=== PATIENT | female | born 1945 | race Caucasian/White ===

== ENCOUNTER 2023-05-05 08:33 | Emergency (ER) | payer MEDICARE, SELFPAY ==
[2023-05-05 08:50] VITALS: BP 160/73; PULSE 80; RESP 14; TEMP 36.5; O2SAT 99; BMI 24.6
--- NOTE | 2023-05-05 08:53 | DI.RAD.S_ITS ---
PROCEDURE: XR TOE LT MIN 2V INDICATIONS: hit left 2nd toe TECHNIQUE: 3 views of the left 2nd toe(s) acquired. COMPARISON: None. FINDINGS: Bones: No fractures or dislocations. No suspicious bony lesions. Soft tissues: No suspicious soft tissue densities. IMPRESSION: No acute fracture. No osseous lesion. If symptoms and/or clinical suspicion for pathology persist, further assessment with repeat, or advanced imaging (e.g., CT, MRI, or bone scan) may be helpful for further assessment. Dictated by: Len Lopez M.D. on 05/05/2023 at 9:36 Approved by: Len Lopez M.D. on 05/05/2023 at 9:37
[2023-05-05 09:44] VITALS: PULSE 70
--- NOTE | 2023-05-05 10:10 | ED_ITS ---
HPI - Extremity Injury (Lower) General Chief Complaint: Extremity Injury, Lower Stated Complaint: LT Foot injury, per pt toe maybe broken Time Seen by Provider: 05/05/23 09:53 Source: patient Mode of arrival: Ambulatory History of Present Illness HPI Narrative: 77-year-old female presents for evaluation left toe injury. Patient states she injured her toe in the middle of the night and is concerned that it may be broken. She was wearing an old postop shoe that she has from a previous surgery, which she feels is helping to protect the area. Related Data Allergies Allergy/AdvReac Type Severity Reaction Status Date / Time No Known Drug Allergies Allergy Verified 05/05/23 08:53 Review of Systems Review of Systems Narrative: Negative except as noted above Patient History Social History Smoking Status: Former smoker Smoking Status: Former smoker alcohol intake frequency: 0-2 drinks per day Substance Use Type: does not use Exam Initial Vital Signs Initial Vital Signs: Vital Signs Temperature 97.7 F 05/05/23 08:50 Pulse Rate 80 05/05/23 08:50 Respiratory Rate 14 05/05/23 08:50 Blood Pressure 160/73 H 05/05/23 08:50 Pulse Oximetry 99 05/05/23 08:50 Oxygen Delivery Method Room Air 05/05/23 08:50 Const: Awake, alert, no acute distress, nontoxic appearing MSK: Minimal swelling left middle toe Skin: Warm, Dry, intact, no rashes Neuro: AO x3, CN II-XII grossly intact, moves all extremities Course Orders Ordered: ED Orders 05/05/23 08:53 XR toe LT min 2V Stat Vital Signs Vital signs: Vital Signs - 8 hr 05/05/23 08:50 05/05/23 09:44 Temperature 97.7 F Pulse Rate 80 Pulse Rate [Left Dorsalis Pedis] 70 Respiratory Rate 14 Blood Pressure 160/73 H Pulse Oximetry 99 Oxygen Delivery Method Room Air MDM - Extremity Injury (Lower) Differential Diagnosis Differential diagnosis: Likely ankle sprain and strain, acute internal de rangement of knee and fracture of femur MDM Narrative Medical decision making narrative: Accidental toe injury, patient was ambulatory without difficulty. X-ray showed no acute fracture. Patient counseled to take Tylenol and apply ice as needed for comfort. Routine PCP follow up advised. Discharge Plan Departure Patient Disposition: Home Clinical Impression: Sprain of toe Qualifiers: Encounter type: initial encounter Qualified Code(s): S93.509A - Unspecified sprain of unspecified toe(s), initial encounter Instructions: DI for Toe Sprain Activity Restrictions/Additional Instructions: Take Tylenol as needed for pain. Apply ice to areas of swelling. Stand Alone Forms: Patient Portal/API
[2023-05-05 10:41] VITALS: BP 142/63; PULSE 81; RESP 20; TEMP 36.7; O2SAT 96
== END 2023-05-05 10:44 | disposition home or self-care (01) ==
PROVIDERS: Emergency Provider Emergency Medicine
DX: S93.505A Unspecified sprain of left lesser toe(s), initial encounter (principal); X58.XXXA Exposure to other specified factors, initial encounter
CPT/HCPCS: 73660; 99282; 99283

== ENCOUNTER → 2024-02-03 10:18 | Outpatient (CLI) | payer MEDICARE, SELFPAY ==
--- NOTE | 2024-02-03 10:22 | DI.CT.S_ITS ---
PROCEDURE: CT LUNG LOW DOSE SCREENING INDICATIONS: SCREENING / TOBACCO DEPENDENCE, IN REMISSION TECHNIQUE: Noncontrast 2.0-2.5 mm thick sections acquired from the pulmonary apices to the posterior costophrenic angles. 7 mm thick axial MIP, and 5 mm coronal and sagittal reformats were then acquired. For radiation dose reduction, the following was used: automated exposure control, adjustment of mA and/or kV according to patient size. COMPARISON: None. FINDINGS: Image quality: Diagnostic. Lower Neck: No enlarged lymph nodes. Thyroid: No thyroid nodules which require sonographic follow up, per consensus guidelines. Axillae: No enlarged lymph nodes. Chest Wall: Unremarkable. Bones: Unremarkable. Lungs and Pleura: No pneumothorax or pleural effusions. Lung volumes are large, centrilobular emphysema appears present. No pulmonary mass lesion is found. Heart: Heart size is normal. No pericardial effusion. Thoracic Vessels: The aorta and pulmonary arteries demonstrate normal size. Mediastinum and [place]: No enlarged lymph nodes. Esophagus: No wall thickening. No hiatal hernia. Upper Abdomen: Visualized upper abdomen solid organs and bowel loops appear normal except for an asymmetric appearance of the upper collecting system of the left kidney when compared to that on the right. There is a fullness with little fat along the presumed collecting system margins when compared to a normal appearance at the upper 3rd collecting system on the right. This may reflect presence of a urothelial mass in that area, a questionable finding, but the area measures up to approximately 23 Hounsfield units (above water in radiodensity). IMPRESSION: No suspicious pulmonary nodules. LUNG-RADS 1; continued annual screening, if eligible. Clinically Significant Non-pulmonary Findings: The study is performed without contrast and note is made of an unusual fullness in the expected area of the upper 3rd collecting system of the left kidney when compared to a normal appearance on the right. Given longstanding smoking history risk of urothelial carcinoma is considered elevated and follow-up urine analysis and consideration of CT IVP or at least targeted single organ ultrasound of the left kidney is recommended. Dictated by: Delroy Mosley M.D. on 02/03/2024 at 11:47 Approved by: Delroy Mosley M.D. on 02/03/2024 at 11:54
== END ==
PROVIDERS: PCP Family Medicine; Referring Provider Family Medicine; Visit Provider Family Medicine
DX: F17.211 Nicotine dependence, cigarettes, in remission (principal); Z12.2 Encounter for screening for malignant neoplasm of respiratory organs
CPT/HCPCS: 71271

== ENCOUNTER → 2024-02-08 10:51 | Outpatient (CLI) | payer MEDICARE, SELFPAY ==
[2024-02-08 11:14] LABS: Estimated Glomerular Filt Rate > 60 mL/min (>60)
--- NOTE | 2024-02-08 11:17 | DI.CT.S_ITS ---
PROCEDURE: CT IVP A/P W/WO INDICATIONS: LEFT KIDNEY MASS TECHNIQUE: Optional 5 mm thick noncontrast images acquired from the diaphragm to the symphysis pubis. After the administration of intravenous contrast, 5 mm thick images acquired from the diaphragm to the symphysis pubis after a 10-minute delay. 2 mm thick coronal and sagittal reformats were then performed of the kidneys and ureters. For radiation dose reduction, the following was used: automated exposure control, adjustment of mA and/or kV according to patient size. COMPARISON: [facility], CT, CT LUNG LOW DOSE SCREENING, 02/03/2024, 10:26. FINDINGS: Image quality: Diagnostic. Kidneys and Ureters: Both kidneys are normal in size, without hydronephrosis or nephrolithiasis. No perinephric fat stranding. There is normal bilateral renal enhancement. Bilateral peripelvic cysts. Otherwise, the renal calyces appear normal in morphology when filled with contrast. Opacified portions of both ureters demonstrate normal caliber Bladder: Bladder wall thickness is normal. No calcified bladder stones. OTHER: Lower chest: Unremarkable. Liver: No solid mass. Gallbladder: No radiopaque gallstones or wall thickening. Biliary ducts: No biliary dilation. Pancreas: No ductal dilation. Spleen: Size is within normal limits. Adrenal Glands: No adrenal nodules. Stomach and Bowel: Normal colonic caliber, without significant wall thickening. Peritoneum: No abnormal intraperitoneal fluid. No free air. Ventral Wall: No hernia. Abdominal Nodes: No retroperitoneal or mesenteric adenopathy by size criteria. Vessels: Aorta and inferior vena cava are normal in size. Atherosclerotic vascular calcifications. PELVIS: Pelvic Organs: Unremarkable. Pelvic Nodes: No enlarged lymph nodes. Miscellaneous: No inguinal hernias are seen. Bones: No aggressive osseous abnormality. Decreased osseous mineralization. Degenerative changes of the spine. IMPRESSION: No nephrolithiasis or filling defects within the opacified renal collecting system or ureters. The abnormality seen on prior CT appears to correlate with peripelvic cysts. No definite renal mass is identified. Dictated by: Brad Car M.D. on 02/08/2024 at 13:52 Approved by: Brad Car M.D. on 02/08/2024 at 14:07
== END ==
PROVIDERS: Radiology Diagnostic Radiology; PCP Family Medicine; Referring Provider Nurse Practitioner Family; Visit Provider Nurse Practitioner Family
DX: N28.89 Other specified disorders of kidney and ureter (principal); N28.1 Cyst of kidney, acquired
CPT/HCPCS: 36415; 74178; 82565; Q9967

== ENCOUNTER → 2024-03-03 10:01 | Outpatient (CLI) | payer MEDICARE, SELFPAY ==
--- NOTE | 2024-03-03 10:02 | DI.RAD.S_ITS ---
PROCEDURE: XR DEXA AXIAL SKELETON INDICATIONS: PREMATURE MENOPAUSE COMPARISON: None. FINDINGS: Lumbar Spine: Bone mineral density 0.909 g/cm2, T score -1.3. Left Femoral Neck: Bone mineral density 0.557 g/cm2, T score -2.6. Left Hip: Bone mineral density 0.649 g/cm2, T score -2.4. Fracture Risk Calculation (when applicable): FRAX score not reported due to T-score less than -2.5. (T score greater or equal to -1.0 to: NORMAL) (T score from -1.1 to -2.4: OSTEOPENIA) (T score less than or equal to -2.5: OSTEOPOROSIS) IMPRESSION: By WHO criteria, patient has osteoporosis. Follow-up guidelines as follows: Osteoporosis: Consider a repeat DEXA and Vertebral Fracture Assessment (VFA) exam in 2 years or sooner if medically necessary, to reassess this patient's status. Osteopenia: Consider a repeat DEXA in 2-3 years to reassess this patient's status, or if there is a new clinical indication. Normal: Consider a repeat DEXA in 5 years or sooner, or if there is a new clinical indication. All treatment decisions require clinical judgment and consideration of individual patient factors, including patient preferences, comorbidities, previous drug use, risk factors not captured in the FRAX model (e.g., frailty, falls, vitamin D deficiency, increased bone turnover, interval significant decline in bone density ) and possible under- or over-estimation of fracture risk by FRAX. In addition, the NOF Guide recommends that FDA-approved medical therapies be considered in postmenopausal women and men age >= 50 years with a: * Hip or vertebral (clinical or morphometric) fracture * T-score of <=-2.5 at the spine or hip * Ten-year fracture probability by FRAX of >= 3% for hip fracture or >=20% for major osteoporotic fracture. Approved by: Ovidio Ge M.D. on 03/03/2024 at 23:43
== END ==
PROVIDERS: PCP Family Medicine; Referring Provider Nurse Practitioner Family; Visit Provider Nurse Practitioner Family
DX: E28.319 Asymptomatic premature menopause (principal); M81.0 Age-related osteoporosis without current pathological fracture
CPT/HCPCS: 77080

== ENCOUNTER → 2024-03-04 08:29 | Outpatient (CLI) | payer MEDICARE, SELFPAY ==
--- NOTE | 2024-03-04 | DI.MG.S_ITS ---
BILATERAL DIGITAL SCREENING MAMMOGRAM 3D/2D WITH CAD: 03/04/2024 CLINICAL: Routine screening. Baseline exam by default. No prior exams were available for comparison. The breasts are heterogeneously dense, which may obscure small masses (category c / 51-75% glandular tissue). Current study was also evaluated with a Computer Aided Detection (CAD) system. There is a mole marker on both breasts. No significant masses, calcifications, or other findings are seen in either breast. IMPRESSION: NEGATIVE There is no mammographic evidence of malignancy. A 1 year screening mammogram is recommended. Based on the Tyrer Cuzick model (a risk assessment model) the patient's lifetime risk is 3.2% and her 10 year risk is 0.0%. According to the ACR, ACS, and NCCN guidelines, an annual breast MRI exam along with mammogram is recommended if the patient's lifetime risk is 20% or greater. This exam was interpreted at Station ID: [id number]. NOTE: For mammograms, a report in lay terms will be sent to the patient. Approximately 15% of breast malignancies will not be visualized mammographically. In the management of a palpable breast mass, a negative mammogram must not discourage biopsy of a clinically suspicious lesion. Electronically Signed By: Emory [email or web address]:03/06/2024 11:03:46 letter sent: Normal Exam ACR BI-RADS Category 1: Negative
== END ==
PROVIDERS: PCP Family Medicine; Referring Provider Family Medicine; Visit Provider Family Medicine
DX: Z12.31 Encounter for screening mammogram for malignant neoplasm of breast (principal)
CPT/HCPCS: 77063; 77067